=== PATIENT | female | born 1945 | race Caucasian/White ===

== ENCOUNTER 2022-07-18 14:17 | Inpatient (IN) | payer MEDICARE, OTHER ==
[2022-07-18 15:34] LABS: INR-International Normal Ratio 1.2; Prothrombin Time 12.5 sec (9.5-12.1)
[2022-07-18] MEDS ORDERED: Metoprolol Tartrate 5 MG/5 ML VIAL ONE (15:55)
[2022-07-18 16:15] LABS: CKMB 0.6 ng/mL (0-6.6)
[2022-07-18 16:45] LABS: Hemoglobin 10.4 g/dL (12.0-15.5); Mean Corpuscular HGB CONC 31.1 g/dL (32.0-36.0); Mean Corpuscular Hemoglobin 24.7 pg (27.0-33.0); Mean Corpuscular Volume 79.3 fl (81.6-98.3); Platelet Count 299 10x3/uL (150-450); RBC Distribution Width 15.3 % (11.5-14.5); Red Blood Cell (RBC) Count 4.21 10x6/uL (3.90-5.03); White Blood Cell (WBC) Count 6.5 10x3/uL (3.5-10.5)
[2022-07-18 16:46] LABS: ALT (SGPT) 10 U/L (8-55); AST (SGOT) 17 U/L (5-34); Albumin 3.8 g/dL (3.4-4.8); Alkaline Phosphatase 73 U/L (40-110); Anion Gap 13 mmol/L (10-20); BUN (Urea Nitrogen) 13 mg/dL (9.8-20.1); Bilirubin, Total 0.6 mg/dL (0.2-1.2); Calc. Creatinine Clearance 0 mL/min (70-130); Calcium 8.8 mg/dL (7.8-10.44); Carbon Dioxide 27 mmol/L (23-31); Chloride 98 mmol/L (98-107); Estimated GFR 40; Globulin 3.1 g/dL (2.4-3.5); Glucose 110 mg/dL (83-110); Potassium 3.4 mmol/L (3.5-5.1); Protein, Total 6.9 g/dL (5.8-8.1); Sodium 135 mmol/L (136-145)
[2022-07-18 16:56] LABS: MDiff Complete? YES; Manual Diff?? YES
[2022-07-18 17:02] LABS: Band 4 % (5-11); Lymphocytes 12 % (21-51); Monocytes 15 % (0-10); Neutrophil 65 % (42-75); Reactive Lymphocytes 4 % (0-10)
[2022-07-18 17:05] LABS: Anisocytosis SLIGHT = 6-15 cells (100X) (0-5/hpf); Elliptocytes SLIGHT = 2-5 cells (100X) (0-1/hpf); Hypochromia SLIGHT = 6-15 cells (100X) (0-5/hpf); Macrocytosis SLIGHT = 6-15 cells (100X) (0-5/hpf); Microcytosis SLIGHT = 6-15 cells (100X) (0-5/hpf); Platelet Morphology Comment Appears Adequate
[2022-07-18 17:39] LABS: SARS-CoV-2 NAA Rapid Test DETECTED (NotDetected)
[2022-07-18 18:11] LABS: Troponin I 0.032 ng/mL (< 0.028)
[2022-07-18] MEDS ORDERED: Senokot S 8.6-50 MG TAB PO PRN (19:27)
[2022-07-18] MEDS ORDERED: Ondansetron ODT 4 MG TAB PO PRN (19:27)
[2022-07-18] MEDS ORDERED: Famotidine 20 MG TAB PO SCH (21:00)
[2022-07-18 21:11] LABS: Troponin I 0.036 ng/mL (< 0.028)
[2022-07-18] MEDS ORDERED: Non-Formulary Medication 1 EACH (Potassium [Potassium] 99 MG Tablet) PO SCH (21:15)
[2022-07-18] MEDS ORDERED: Atorvastatin Calcium 40 MG TAB PO SCH (23:15)
[2022-07-18] MEDS ORDERED: ALPRAZolam 0.5 MG TAB PO SCH (23:15)
[2022-07-19] MEDS ORDERED: Acetaminophen 325 MG TAB PO PRN (00:20)
[2022-07-19 00:26] VITALS: BMI 28.3
[2022-07-19] MEDS: Cepastat Lozenges 1 LOZ PO PRN ×2 (00:39→06:00)
[2022-07-19 05:12] LABS: Hemoglobin 10.5 g/dL (12.0-15.5); Mean Corpuscular HGB CONC 31.5 g/dL (32.0-36.0); Mean Corpuscular Hemoglobin 24.9 pg (27.0-33.0); Mean Corpuscular Volume 79.1 fl (81.6-98.3); Mean Platelet Volume 10.6 fl (7.4-10.4); Platelet Count 291 10x3/uL (150-450); RBC Distribution Width 15.3 % (11.5-14.5); Red Blood Cell (RBC) Count 4.21 10x6/uL (3.90-5.03); White Blood Cell (WBC) Count 6.7 10x3/uL (3.5-10.5)
[2022-07-19 05:19] LABS: Anion Gap 14 mmol/L (10-20); BUN (Urea Nitrogen) 15 mg/dL (9.8-20.1); Calc. Creatinine Clearance 52 mL/min (70-130); Calcium 8.4 mg/dL (7.8-10.44); Carbon Dioxide 25 mmol/L (23-31); Chloride 100 mmol/L (98-107); Estimated GFR 51; Glucose 85 mg/dL (83-110); Potassium 3.5 mmol/L (3.5-5.1); Sodium 135 mmol/L (136-145)
[2022-07-19 05:30] LABS: MDiff Complete? YES
[2022-07-19 06:31] LABS: Band 1 % (5-11); Lymphocytes 20 % (21-51); Monocytes 22 % (0-10); Neutrophil 57 % (42-75)
[2022-07-19 06:36] LABS: Hypochromia SLIGHT = 6-15 cells (100X) (0-5/hpf); Microcytosis SLIGHT = 6-15 cells (100X) (0-5/hpf); Ovalocytes SLIGHT = 2-5 cells (100X) (0-1/hpf); Platelet Morphology Comment Appears Adequate
[2022-07-19] MEDS: DULoxetine 30 MG CAP PO SCH (08:40)
[2022-07-19] MEDS: Famotidine 20 MG TAB PO SCH (08:41)
[2022-07-19] MEDS: Furosemide 40 MG TAB PO SCH (08:41)
[2022-07-19] MEDS: Apixaban 5 MG TAB PO SCH ×2 (08:41→22:11)
[2022-07-19] MEDS ORDERED: Losartan 25 MG TAB PO SCH (09:00)
[2022-07-19] MEDS ORDERED: ALPRAZolam 0.5 MG TAB PO SCH ×2 (21:00)
[2022-07-19] MEDS ORDERED: Atorvastatin Calcium 40 MG TAB PO SCH (21:00)
[2022-07-19] MEDS ORDERED: diphenhydrAMINE 25 MG CAP PO SCH (22:00)
[2022-07-20] MEDS: Cepastat Lozenges 1 LOZ PO PRN (00:08)
[2022-07-20] MEDS: Furosemide 40 MG TAB PO SCH (06:33)
[2022-07-20 07:48] VITALS: BP 162/82; TEMP 97.7
[2022-07-20] MEDS: Apixaban 5 MG TAB PO SCH (08:35)
[2022-07-20] MEDS: DULoxetine 30 MG CAP PO SCH (08:35)
[2022-07-20] MEDS: Famotidine 20 MG TAB PO SCH (08:35)
[2022-07-20] MEDS ORDERED: Potassium Chloride 10 MEQ TAB PO SCH (09:00)
[2022-07-20] MEDS ORDERED: Losartan Potassium 50 MG TAB PO SCH (09:00)
== END 2022-07-20 11:19 | disposition home or self-care (01) | DRG 177 ==
LOC: CSHERS 14:17 → CSHTELE 18:16
PROVIDERS: ADMIT Internal Medicine; ATTEND Internal Medicine
PROC: 8E0ZXY6 Isolation (ICD-10-PCS; principal; 2022-07-18)
DX: U07.1 COVID-19 (principal); I21.A1 Myocardial infarction type 2; N17.9 Acute kidney failure, unspecified; I48.91 Unspecified atrial fibrillation; F32.A Depression, unspecified; K21.9 Gastro-esophageal reflux disease without esophagitis; I25.10 Atherosclerotic heart disease of native coronary artery without angina pectoris; E78.5 Hyperlipidemia, unspecified; J45.909 Unspecified asthma, uncomplicated; N18.9 Chronic kidney disease, unspecified; E11.22 Type 2 diabetes mellitus with diabetic chronic kidney disease; I12.9 Hypertensive chronic kidney disease with stage 1 through stage 4 chronic kidney disease, or unspecified chronic kidney disease; Z98.890 Other specified postprocedural states; Z88.8 Allergy status to other drugs, medicaments and biological substances; Z88.5 Allergy status to narcotic agent; Z79.82 Long term (current) use of aspirin; Z79.899 Other long term (current) drug therapy; Z90.49 Acquired absence of other specified parts of digestive tract; Z90.710 Acquired absence of both cervix and uterus
CPT/HCPCS: 36415; 80048; 80053; 82553; 83880; 84484; 85025; 85610; 85730; 86140; 93005; 96374; U0002

== ENCOUNTER 2023-01-31 02:41 | Emergency (ER) | payer MEDICARE, OTHER ==
[2023-01-31 03:50] LABS: ALT (SGPT) 9 U/L (8-55); AST (SGOT) 13 U/L (5-34); Albumin 4.1 g/dL (3.4-4.8); Alkaline Phosphatase 111 U/L (40-110); Anion Gap 12 mmol/L (10-20); BUN (Urea Nitrogen) 13 mg/dL (9.8-20.1); Bilirubin, Total 0.4 mg/dL (0.2-1.2); Calc. Creatinine Clearance 0 mL/min (70-130); Calcium 9.3 mg/dL (7.8-10.44); Carbon Dioxide 29 mmol/L (23-31); Chloride 95 mmol/L (98-107); Estimated GFR 40; Globulin 2.9 g/dL (2.4-3.5); Glucose 124 mg/dL (83-110); Sodium 131 mmol/L (136-145)
[2023-01-31 03:55] LABS: #Basophils 0.1 10x3/uL (0.0-0.2); #Eosinphils 0.2 10x3/uL (0.0-0.5); #Monocytes 0.6 10x3/uL (0.0-1.1); #Neutrophils 4.6 10x3/uL (1.5-8.4); %Basophils 1.1 % (0.0-2.0); %Eosinophils 2.9 % (0.0-6.0); %Lymphocytes 25.3 % (18.0-47.0); %Monocytes 7.6 % (0.0-10.0); %Neutrophils 62.8 % (40.0-75.0); Hematocrit 35.1 % (34.9-44.5); Hemoglobin 11.8 g/dL (12.0-15.5); Mean Corpuscular HGB CONC 33.6 g/dL (32.0-36.0); Mean Corpuscular Hemoglobin 29.7 pg (27.0-33.0); Mean Corpuscular Volume 88.4 fl (81.6-98.3); Mean Platelet Volume 9.7 fl (7.4-10.4); Platelet Count 395 10x3/uL (150-450); RBC Distribution Width 14.1 % (11.5-14.5); Red Blood Cell (RBC) Count 3.97 10x6/uL (3.90-5.03); White Blood Cell (WBC) Count 7.4 10x3/uL (3.5-10.5)
[2023-01-31 03:56] LABS: Troponin I Less than 0.010 ng/mL (< 0.028)
[2023-01-31] MEDS ORDERED: Acetaminophen 500 MG TAB ONE (04:11)
== END 2023-01-31 06:32 | disposition home or self-care (01) ==
LOC: CSHERS 02:41
DX: I48.91 Unspecified atrial fibrillation (principal); R20.2 Paresthesia of skin
CPT/HCPCS: 70450; 80053; 84484; 85025

== ENCOUNTER 2023-05-27 14:56 | Emergency (ER) | payer MEDICARE, OTHER ==
[2023-05-27 15:39] LABS: #Basophils 0.1 10x3/uL (0.0-0.2); #Eosinphils 0.1 10x3/uL (0.0-0.5); #Monocytes 0.4 10x3/uL (0.0-1.1); #Neutrophils 4.3 10x3/uL (1.5-8.4); %Eosinophils 1.6 % (0.0-6.0); %Lymphocytes 22.5 % (18.0-47.0); %Monocytes 6.4 % (0.0-10.0); %Neutrophils 68.3 % (40.0-75.0); Hematocrit 31.2 % (34.9-44.5); Mean Corpuscular HGB CONC 32.1 g/dL (32.0-36.0); Mean Corpuscular Hemoglobin 27.2 pg (27.0-33.0); Mean Corpuscular Volume 84.8 fl (81.6-98.3); Mean Platelet Volume 10.2 fl (7.4-10.4); Platelet Count 326 10x3/uL (150-450); Red Blood Cell (RBC) Count 3.68 10x6/uL (3.90-5.03); White Blood Cell (WBC) Count 6.3 10x3/uL (3.5-10.5)
[2023-05-27 15:51] LABS: ALT (SGPT) 20 U/L (8-55); AST (SGOT) 17 U/L (5-34); Alkaline Phosphatase 90 U/L (40-110); Anion Gap 13 mmol/L (10-20); BUN (Urea Nitrogen) 13 mg/dL (9.8-20.1); Bilirubin, Total 0.5 mg/dL (0.2-1.2); Calc. Creatinine Clearance 0 mL/min (70-130); Calcium 8.9 mg/dL (7.8-10.44); Carbon Dioxide 25 mmol/L (23-31); Chloride 102 mmol/L (98-107); Estimated GFR 40; Globulin 2.8 g/dL (2.4-3.5); Glucose 155 mg/dL (83-110); Lipase 17 U/L (8-78); Potassium 3.9 mmol/L (3.5-5.1); Protein, Total 6.8 g/dL (5.8-8.1); Sodium 136 mmol/L (136-145)
[2023-05-27 15:58] LABS: Troponin I 0.011 ng/mL (< 0.028)
== END 2023-05-27 16:52 | disposition home or self-care (01) ==
LOC: CSHERS 14:56
DX: R07.89 Other chest pain (principal); I10 Essential (primary) hypertension
CPT/HCPCS: 36415; 71045; 80053; 83690; 83735; 83880; 84484; 85025; 85379; 93005

== ENCOUNTER 2024-02-18 00:10 | Inpatient (IN) | payer MEDICARE, OTHER ==
[2024-02-18 00:57] LABS: #Basophils 0.06 10x3/uL (0.0-0.2); #Eosinphils 0.16 10x3/uL (0.0-0.5); #Monocytes 0.53 10x3/uL (0.0-1.1); #Neutrophils 4.75 10x3/uL (1.5-8.4); %Basophils 0.9 % (0.0-2.0); %Eosinophils 2.3 % (0.0-6.0); %Lymphocytes 19.2 % (18.0-47.0); %Monocytes 7.8 % (0.0-10.0); %Neutrophils 69.7 % (40.0-75.0); Hematocrit 28.5 % (34.9-44.5); Hemoglobin 8.9 g/dL (12.0-15.5); Mean Corpuscular HGB CONC 31.2 g/dL (32.0-36.0); Mean Corpuscular Hemoglobin 25.1 pg (27.0-33.0); Mean Corpuscular Volume 80.5 fL (81.6-98.3); Mean Platelet Volume 9.8 fL (7.4-10.4); Platelet Count 302 10x3/uL (150-450); RBC Distribution Width 17.1 % (11.5-14.5); Red Blood Cell (RBC) Count 3.54 10x6/uL (3.90-5.03); White Blood Cell (WBC) Count 6.8 10x3/uL (3.5-10.5)
[2024-02-18 01:12] LABS: Troponin I Less than 0.010 ng/mL (< 0.028)
[2024-02-18 01:13] LABS: ALT (SGPT) 10 U/L (8-55); AST (SGOT) 13 U/L (5-34); Albumin 3.7 g/dL (3.4-4.8); Alkaline Phosphatase 79 U/L (40-110); Anion Gap 16 mmol/L (10-20); BUN (Urea Nitrogen) 17 mg/dL (9.8-20.1); Bilirubin, Total 0.5 mg/dL (0.2-1.2); Calc. Creatinine Clearance 0 mL/min (70-130); Calcium 9.2 mg/dL (7.8-10.44); Carbon Dioxide 22 mmol/L (23-31); Chloride 98 mmol/L (98-107); Estimated GFR 27; Globulin 3.2 g/dL (2.4-3.5); Glucose 198 mg/dL (83-110); Potassium 4.7 mmol/L (3.5-5.1); Protein, Total 6.9 g/dL (5.8-8.1); Sodium 131 mmol/L (136-145)
[2024-02-18 01:35] LABS: Influenza A by NAA Not Detected (NotDetected); Influenza B by NAA Not Detected (NotDetected); SARS-CoV-2 NAA Rapid Test Not Detected (NotDetected)
[2024-02-18] MEDS ORDERED: Furosemide 40 MG (4 mL) VIAL ONE ×2 (02:32→17:08)
[2024-02-18] MEDS ORDERED: Calcium Carbonate 500 MG ChewTAB PO PRN (03:04)
[2024-02-18] MEDS ORDERED: Guaifenesin DM 100-10/5 ML UDCUP PO PRN (03:04)
[2024-02-18] MEDS ORDERED: Senokot S 8.6-50 MG TAB PO PRN (03:04)
[2024-02-18] MEDS ORDERED: Ondansetron PF 4 MG/2 ML Vial IVP PRN (03:04)
[2024-02-18] MEDS ORDERED: Cyclobenzaprine 10 MG TAB PO PRN (03:06)
[2024-02-18] MEDS ORDERED: Ventolin HFA Inhaler 60 PUFF INHALER INH PRN (03:16)
[2024-02-18] MEDS ORDERED: Morphine 2 MG/ML VIAL ONE (04:08)
[2024-02-18] MEDS ORDERED: Acetaminophen 325 MG TAB ONE ×2 (05:00→17:08)
[2024-02-18 05:27] LABS: #Basophils 0.07 10x3/uL (0.0-0.2); #Eosinphils 0.16 10x3/uL (0.0-0.5); #Neutrophils 4.79 10x3/uL (1.5-8.4); %Eosinophils 2.3 % (0.0-6.0); %Lymphocytes 19.2 % (18.0-47.0); %Monocytes 8.6 % (0.0-10.0); %Neutrophils 68.6 % (40.0-75.0); Hematocrit 28.8 % (34.9-44.5); Hemoglobin 8.9 g/dL (12.0-15.5); Mean Corpuscular HGB CONC 30.9 g/dL (32.0-36.0); Mean Corpuscular Hemoglobin 24.5 pg (27.0-33.0); Mean Corpuscular Volume 79.1 fL (81.6-98.3); Mean Platelet Volume 9.7 fL (7.4-10.4); Platelet Count 289 10x3/uL (150-450); RBC Distribution Width 16.9 % (11.5-14.5); Red Blood Cell (RBC) Count 3.64 10x6/uL (3.90-5.03)
[2024-02-18 05:44] LABS: Anion Gap 17 mmol/L (10-20); BUN (Urea Nitrogen) 17 mg/dL (9.8-20.1); Calc. Creatinine Clearance 0 mL/min (70-130); Calcium 9.4 mg/dL (7.8-10.44); Carbon Dioxide 22 mmol/L (23-31); Chloride 99 mmol/L (98-107); Estimated GFR 31; Glucose 137 mg/dL (83-110); Potassium 4.4 mmol/L (3.5-5.1); Sodium 134 mmol/L (136-145)
[2024-02-18 06:03] LABS: Troponin I 0.013 ng/mL (< 0.028)
[2024-02-18] MEDS ORDERED: Apixaban 5 MG TAB ONE (09:16)
[2024-02-18] MEDS ORDERED: Pantoprazole DR 40 MG TAB ONE (09:16)
[2024-02-18] MEDS ORDERED: Carvedilol 6.25 MG TAB ONE ×2 (09:17→17:08)
[2024-02-18] MEDS: Carvedilol 6.25 MG TAB PO SCH (09:35)
[2024-02-18] MEDS: Apixaban 5 MG TAB PO SCH (09:36)
[2024-02-18] MEDS: Pantoprazole DR 40 MG TAB PO SCH (09:37)
[2024-02-18] MEDS: Alogliptin 6.25 MG TAB PO SCH (09:58)
[2024-02-18] MEDS: Magnesium Oxide 400 MG TAB PO SCH (09:58)
[2024-02-18] MEDS: DULoxetine 30 MG CAP PO SCH (09:58)
[2024-02-18] MEDS: Flecainide 50 MG TAB PO SCH (09:58)
[2024-02-18 10:13] VITALS: BMI 31.2
[2024-02-18 12:48] LABS: Hemoglobin A1c 6.6 % (4.0-6.0)
[2024-02-18] MEDS: Acetaminophen 325 MG TAB PO PRN (17:19)
[2024-02-18 17:20] VITALS: BP 123/55
[2024-02-18] MEDS: Furosemide 40 MG (4 mL) VIAL SLOW IVP SCH (17:27)
[2024-02-18 17:39] VITALS: TEMP 97.5
[2024-02-18] MEDS ORDERED: ALPRAZolam 0.5 MG TAB PO SCH (21:00)
[2024-02-18] MEDS ORDERED: Calcium Carbonate 600 MG TAB PO SCH (21:00)
[2024-02-18] MEDS ORDERED: Atorvastatin Calcium 40 MG TAB PO SCH (21:00)
== END 2024-02-18 20:33 | disposition home or self-care (01) | DRG 292 ==
LOC: SUATTDRO 00:10 → CSHERS 00:10 → CSHERHOLD 08:34
PROVIDERS: ADMIT Internal Medicine; ATTEND Internal Medicine
DX: I11.0 Hypertensive heart disease with heart failure (principal); E87.0 Hyperosmolality and hypernatremia; N17.9 Acute kidney failure, unspecified; I48.19 Other persistent atrial fibrillation; I50.9 Heart failure, unspecified; I25.10 Atherosclerotic heart disease of native coronary artery without angina pectoris; I95.9 Hypotension, unspecified; R53.81 Other malaise; E78.5 Hyperlipidemia, unspecified; N18.30 Chronic kidney disease, stage 3 unspecified; E11.9 Type 2 diabetes mellitus without complications; E87.70 Fluid overload, unspecified; K21.9 Gastro-esophageal reflux disease without esophagitis; I08.1 Rheumatic disorders of both mitral and tricuspid valves; I49.5 Sick sinus syndrome; Z88.5 Allergy status to narcotic agent; Z88.8 Allergy status to other drugs, medicaments and biological substances; Z79.01 Long term (current) use of anticoagulants; Z79.899 Other long term (current) drug therapy; Z98.890 Other specified postprocedural states; Z90.710 Acquired absence of both cervix and uterus; Z98.891 History of uterine scar from previous surgery
CPT/HCPCS: 71045; 80053; 83036; 83880; 84443; 84484; 85025; 93005; 93010; 93970; 96374; 96375; J1940; J2272